=== PATIENT | female | born 1965 | race Caucasian/White ===

== ENCOUNTER 2020-12-12 07:28 | Outpatient (REF) | payer BC, SELFPAY ==
[2020-12-12 11:52] LABS: Hematocrit 40.7 % (37-47); Hemoglobin 13.7 g/dl (12.0-16.0); Mean Corpuscular HGB Conc 33.7 g/dl (31.0-35.0); Mean Corpuscular Hemoglobin 32.2 pg (27.0-33.0); Mean Corpuscular Volume 95.8 fL (80-98); Mean Platelet Volume 10.9 fL (9.4-12.3); Platelet Count 143 X10*3/uL (160-400); Red Blood Count 4.25 X10*6/uL (4.20-5.50); Red Cell Distribution Width 11.8 % (11.0-16.0); White Blood Count 4.1 X10*3/uL (4.8-10.8)
[2020-12-12 12:01] LABS: Alanine Aminotransferase 26 U/L (0-31); Albumin Level 4.2 g/dL (3.5-5.0); Alkaline Phosphatase 109 U/L (39-117); Anion Gap 13 (12-20); Aspartate Amino Transferase 20 U/L (5-31); Bilirubin Direct 0.4 mg/dL (0.0-0.5); Bilirubin Total 1.2 mg/dL (0.0-1.0); Blood Urea Nitrogen 17 mg/dL (9-16); Calcium 9.5 mg/dL (8.4-10.2); Carbon Dioxide 29 mmol/L (22-29); Chloride 105 mmol/L (96-108); Cholesterol 168 mg/dL; Estimated Glomerular Filt Rate > 60; Glucose Random 104 mg/dL (60-115); HDL Cholesterol 61 mg/dL; LDL Cholesterol Calculated 83 mg/dl; Potassium 4.3 mmol/L (3.3-5.1); Sodium 143 mmol/L (135-145); Triglycerides 123 mg/dL
== END 2020-12-12 07:29 | disposition home or self-care (01) ==
LOC: HO.HMGCLDS 07:28
PROVIDERS: PCP Internal Medicine; Visit Provider Internal Medicine
DX: E78.01 Familial hypercholesterolemia (principal)
CPT/HCPCS: 36415; 80048; 80061; 80076; 84443; 85027

== ENCOUNTER 2021-09-30 11:26 | Outpatient (REF) | payer BC, SELFPAY ==
[2021-09-30 14:06] LABS: Appearance Urine CLOUDY; Color Urine YELLOW; Glucose Urine UA NEG (NEG); Leukocyte Esterase Urine 2+ (NEG); Nitrite Urine NEG (NEG); UACC Culture Trigger YES; Urine Blood 3+ (NEG); Urine Ketones NEG (NEG); Urine Protein 2+ MG/DL (NEG-TRACE)
[2021-09-30 14:37] LABS: WBC Urine TNTC /HPF (0-4)
[2021-09-30 14:38] LABS: Bacteria Urine 1+ /LPF; Mucus Urine 1+ /LPF; Squamous Epithelial Cell Urine TRACE /LPF
== END 2021-09-30 11:27 | disposition home or self-care (01) ==
LOC: HO.HMGCLDS 11:26
PROVIDERS: PCP Internal Medicine; Visit Provider Internal Medicine
DX: R30.0 Dysuria (principal)
CPT/HCPCS: 81001; 81003; 87086; 87088; 87186

== ENCOUNTER 2023-12-24 14:09 | Outpatient (AMB) | payer BC, SELFPAY ==
--- NOTE | 2023-12-24 14:15 | A.OFFPC_ITS ---
Vital Signs 12/24/23 14:18 Height 5 ft 5 in Weight 167 lb 2 oz BMI 27.8 BP 122/66 Blood Pressure Location Rt brachial Position Sitting Pulse 69 Pulse Source Pulse Oximeter Pulse Oximetry (%) 97 Oxygen Delivery Method Room Air Intake Visit Reasons: Medications F/U Intake Note: Patient is here to follow up on medication review. Complaint of palpitation for the last one week Food Service Worker Required: No Professor Of Special Education: Not Required per policy Accompanied by: Self / Same As Patient Allergies No Known Allergies [No Known Allergies*] Allergy (Verified 04/27/23 13:19) Tobacco use date assessed: 12/24/23 Dental Screening Dental Screen Date: 12/24/23 Did you have a dental visit in the last 12 months?: Yes Did you have a dental problem in the last 6 months where you did not have access to dental care?: No Was dental information given to patient?: Patient has dentist HPI Medications F/U HPI Details 58-year-old female presents to the offic e to discuss her medical condition. Patient reports heaviness of chest at times with racing heartbeats. Symptoms are partially treated with the propranolol twice a day. She feels anxious and symptoms are more at work. Her sleep patterns are disturbed. Racing thoughts at times. Also feels that something is oozing from her ears. Occasionally it is itchy. [facility] Medical History (Updated 12/25/23 @ 15:08 by Bharathi Gonzalez MD) Eczema of external ear Irritable bowel syndrome Anxiety disorder, unspecified Familial hypercholesterolemia Surgical History Hx of removal of ovary History of hand surgery Family History Father No problems noted. Mother No problems noted. Brother No problems noted. Sister No problems noted. Daughter No problems noted. 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 1. Little interest or pleasure in doing things: not at all 2. Feeling down, depressed, or hopeless: not at all 3. Trouble falling or staying asleep, or sleeping too much: not at all 4. Feeling tired or having little energy: not at all 5. Poor appetite or overeating: not at all 6. Feeling bad about yourself - or that you are a failure or have let yourself or your family down: not at all 7. Trouble concentrating on things, such as reading the newspaper or watching t elevision: not at all 8. Moving or speaking so slowly that other people could have noticed. Or the opposite - being so fidgety or restless that you have been moving around a lot more than usual: not at all 9. Thoughts that you would be better off or of hurting yourself in some way: not at all Total score: 0 Depression Screening Interpretation: Negative Depression Screening Done: Yes Source: Developed by Drs. Amadeo Tovar, Dariela Barr, Jero Berger and colleagues, with an educational sekou from [employer]. Thrive Questionnaire Date Thrive assessed: 12/24/23 I am a: Patient What is your living situation today?: I have a steady place to live Within the past 12 months, did the food you bought not last and you didn't have the money to get more?: Never true Within the past 12 months, did you worry whether your food would run out before you got money to buy more?: Never true Do you have trouble paying for medicines?: No Do you have trouble getting transportation to medical appointments?: No Do you have trouble paying your heating and electricity bill?: No Do you have trouble taking care of your child, family member or friend?: No Do you have trouble with day-to-day activities such as bathing, preparing meals, shopping, managing finances, etc.?: No Are you currently unemployed and looking for a job?: No Are you interested in more education?: No Currently or been in a relationship where the following occur: no concerns reported THRIVE Score: 0 AUDIT C Alcohol Use Questionnaire (AUDIT-C) 1. How often do you have a drink containing alcohol?: 2-4 times a month 2. How many drinks containing alcohol do you have on a typical day when you are drinking?: 1 or 2 Total Score: 2 WILY-7 AMB Questionnaire WILY-7 Date WILY - 7 assessed: 12/24/23 Feeling nervous, anxious, or on edge: 3 = Nearly every day Not being able to stop or control worryin = Nearly every day Worrying too much about different things: 3 = Nearly every day Trouble relaxin = Several days Being so restless that it is hard to sit still: 0 = Not at all Becoming easily annoyed or irritable: 0 = Not at all Feeling afraid as if something awful might happen: 1 = Several days Total WILY-7 score (0-4 normal; 5-9 mild; 10-14 moderate; 15-21 severe): 11 Source: Developed by Drs. Amadeo Tovra, Dariela Barr, Jero Berger and colleagues, with an educational sekou from [employer]. Physical exam (Primary Care) Vital Signs: Last Vital Signs Pulse 69 12/24/23 14:18 BP 122/66 12/24/23 14:18 Pulse Ox 97 12/24/23 14:18 Oxygen Delivery Method Room Air 12/24/23 14:18 BMI result Body Mass Index 27.8 Tobacco/Smoking Status: Tobacco use Status Tobacco use date assessed 12/24/23 12/24/23 14:17 Patient Tobacco Use Status Never used Tobacco 12/24/23 14:38 e-Cigarette/Vaping Use Never Used 12/24/23 14:17 PHQ-9: PHQ-9 Score PHQ-9: Total score 0 12/24/23 14:17 Depression Screening Interpretation: Negative Thrive Assessment: Date of Thrive Assessment Date Thrive assessed 12/24/23 12/24/23 14:17 Currently or been in a relationship where the following occur: no concerns reported Const General: cooperative and healthy appearing Nutritional Appearance: well nourished Orientation/consciousness: patient oriented x3 Limitations: no limitations HENMT Head: Yes normal to inspection Eyes General: appearance normal, both eyes and all related structures Neck Neck: Yes normal visual inspection Chest Chest palpation & inspection: normal palpation of entire chest wall Resp Effort & Inspection: normal respiratory effort Skin Other: Right ear: Tragus: Erythematous area,weepy Neuro General: patient oriented x3 Office Procedures EKG Details: Normal sinus rhythm 76472-[id number], Complete Assessment and Plan Assessment & Plan (1) Anxiety disorder, unspecified: Code(s): F41.9 - Anxiety disorder, unspecified Plan: Citalopram has been started. Patient has agreed to take the medication. Citalopram 10 mg once a day. Follow-up in 4 weeks. (2) Familial hypercholesterolemia: Comment: Atorvastatin has been called in. Repeat lab work will be done in 6 months. Code(s): E78.01 - Familial hypercholesterolemia (3) Eczema of external ear: Code(s): H60.549 - Acute eczematoid otitis externa, unspecified ear Plan: Triamcinolone prescription given. Orders: Orders AMB EKG-In Office 12/24/23 R00.2 - Palpitations Lipid Panel 12/24/23 E78.01 - Familial hypercholesterolemia, F41.9 - Anxiety disorder, unspecified Basic Metabolic Panel 12/24/23 E78.01 - Familial hypercholesterolemia, F41.9 - Anxiety disorder, unspecified Complete Blood Count no Diff 12/24/23 E78.01 - Familial hypercholesterolemia, F41.9 - Anxiety disorder, unspecified Liver Panel 12/24/23 E78.01 - Familial hypercholesterolemia, F41.9 - Anxiety disorder, unspecified Thyroid Stimulating Hormone 12/24/23 E78.01 - Familial hypercholesterolemia, F41.9 - Anxiety disorder, unspecified UA and rflx microscopic 12/24/23 E78.01 - Familial hypercholesterolemia, F41.9 - Anxiety disorder, unspecified Medications: New escitalopram oxalate 10 mg PO DAILY 90 tabs 1RF 90 days Changed From propranolol 10 mg PO BID 60 tabs 1RF To propranolol 10 mg PO TID 60 tabs 1RF Refilled clonazepam administer 30 minutes before bedtime 0.5 mg PO BEDTIME 14 tabs 0RF atorvastatin 10 mg PO BEDTIME 90 tabs 1RF betamethasone dipropionate 0.05% 1 appl topical BID PRN 45 grams 0RF skin irritation Coding Level of Care Code Est Pt Level 4 (82582) Complex EM visit Add On G2211 Diagnoses Anxiety disorder, unspecified F41.9 Familial hypercholesterolemia E78.01 Eczema of external ear H60.549 CPT Codes EKG - CPT: 59215-[id number], Complete ([id number])
[2023-12-24 14:18] VITALS: BP 122/66; PULSE 69; O2SAT 97; BMI 27.8
== END 2023-12-24 15:24 | disposition home or self-care (01) ==
PROVIDERS: PCP Internal Medicine; Visit Provider Internal Medicine
DX: R00.2 Palpitations (principal); E78.01 Familial hypercholesterolemia; F41.9 Anxiety disorder, unspecified; H60.543 Acute eczematoid otitis externa, bilateral
CPT/HCPCS: 93000; 99214

== ENCOUNTER 2024-01-13 07:57 | Outpatient (REF) | payer BC, SELFPAY ==
[2024-01-13 10:18] LABS: Appearance Urine Clear; Color Urine Yellow; Glucose Urine UA Negative (Negative); Leukocyte Esterase Urine Moderate (2+) (Negative); Nitrite Urine Negative (Negative); Specific Gravity - Urine 1.015 (1.005-1.025); UMIC TRIGGER UA YES; Urine Blood Negative (Negative); Urine Ketones Negative (Negative); Urine Protein Negative (Neg-Trace)
[2024-01-13 10:18] LABS: Hematocrit 43.7 % (37.0-47.0); Hemoglobin 14.8 g/dl (12.0-16.0); Mean Corpuscular HGB Conc 33.9 g/dl (31.0-35.0); Mean Corpuscular Hemoglobin 32.2 pg (27.0-33.0); Mean Corpuscular Volume 95.2 fL (80.0-98.0); Mean Platelet Volume 10.7 fL (9.4-12.3); Platelet Count 147 X10*3/uL (160-400); Red Blood Count 4.59 X10*6/uL (4.20-5.50); Red Cell Distribution Width 11.9 % (11.0-16.0); White Blood Count 4.9 X10*3/uL (4.8-10.8)
[2024-01-13 10:22] LABS: Bacteria Urine None Seen (None Seen); Hyaline Casts Urine 0-2 /LPF (0-2); RBC Urine 0-2 /HPF (0-2); Squamous Epithelial Cell Urine 0-2 /HPF (0-2); WBC Urine 0-5 /HPF (0-5)
[2024-01-13 10:40] LABS: Alanine Aminotransferase 23 U/L (0-31); Albumin Level 4.4 g/dL (3.5-5.0); Alkaline Phosphatase 84 U/L (39-117); Anion Gap 13 (12-20); Aspartate Amino Transferase 20 U/L (5-31); Bilirubin Direct 0.4 mg/dL (0.0-0.5); Bilirubin Total 1.2 mg/dL (0.0-1.0); Blood Urea Nitrogen 20 mg/dL (9-16); Carbon Dioxide 27 mmol/L (22-29); Chloride 104 mmol/L (96-108); Cholesterol 191 mg/dL (<200); Estimated Glomerular Filt Rate > 60; Glucose Random 104 mg/dL (60-115); HDL Cholesterol 64 mg/dL (>40); LDL Cholesterol Calculated 93 mg/dL (<100); Potassium 4.3 mmol/L (3.3-5.1); Sodium 140 mmol/L (135-145); Total Protein 7.3 g/dL (6.5-8.0); Triglycerides 174 mg/dL (<150)
[2024-01-13 10:56] LABS: Thyroid Stimulating Hormone 1.58 uIU/mL (0.32-4.0)
== END 2024-01-13 07:58 | disposition home or self-care (01) ==
LOC: HO.HMGCLDS 07:57
PROVIDERS: PCP Internal Medicine; Visit Provider Internal Medicine
DX: F41.9 Anxiety disorder, unspecified (principal); E78.01 Familial hypercholesterolemia
CPT/HCPCS: 36415; 80048; 80061; 80076; 81001; 84443; 85027

== ENCOUNTER 2024-01-27 14:31 | Outpatient (AMB) | payer BC, SELFPAY ==
--- NOTE | 2024-01-27 14:59 | A.OFFPC_ITS ---
Vital Signs 01/27/24 15:01 Height 5 ft 5 in Weight 167 lb BMI 27.8 BP 100/62 Blood Pressure Location Lt brachial Position Sitting Pulse 62 Pulse Source Pulse Oximeter Pulse Oximetry (%) 95 Oxygen Delivery Method Room Air Intake Visit Reasons: 1mof\u Intake Note: Patient is here to follow up on Anxiety and Hypercholesterolemia. 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 She is tolerating the medications very well. The palpitations symptoms that she had in the last office visit has now resolved. Reporting no side effects with the SSRI. [facility] Medical History (Updated 12/25/23 @ 15:08 by Bharathi Gonzalez MD) Eczema of external ear Irritable bowel syndrome Anxiety disorder, unspecified Familial hypercholesterolemia Surgical History Hx of removal of ovary History of hand surgery Family History Father No problems noted. Mother No problems noted. Brother No problems noted. Sister No problems noted. Daughter No problems noted. 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 Cognitive needs: No Hearing needs: No Vision needs: Yes (Glasses/ Contacts) Questionnaire Thrive Questionnaire Date Thrive assessed: 12/24/23 WILY-7 AMB Questionnaire WILY-7 Date WILY - 7 assessed: 01/27/24 Feeling nervous, anxious, or on edge: 0 = Not at all Not being able to stop or control worryin = Not at all Worrying too much about different things: 0 = Not at all Trouble relaxin = Not at all Being so restless that it is hard to sit still: 0 = Not at all Becoming easily annoyed or irritable: 0 = Not at all Feeling afraid as if something awful might happen: 0 = Not at all Total WILY-7 score (0-4 normal; 5-9 mild; 10-14 moderate; 15-21 severe): 0 Source: Developed by Drs. Amadeo Tovar, Dariela Barr, Jero Berger and colleagues, with an educational sekou from [employer]. Physical exam (Primary Care) Vital Signs: Last Vital Signs Pulse 62 01/27/24 15:01 BP 100/62 01/27/24 15:01 Pulse Ox 95 01/27/24 15:01 Oxygen Delivery Method Room Air 01/27/24 15:01 BMI result Body Mass Index 27.8 Tobacco/Smoking Status: Tobacco use Status Tobacco use date assessed 01/27/24 01/27/24 15:05 Patient Tobacco Use Status Never used Tobacco 01/27/24 15:05 e-Cigarette/Vaping Use Never Used 01/27/24 15:05 Thrive Assessment: Date of Thrive Assessment Date Thrive assessed 12/24/23 01/27/24 15:05 Const General: cooperative and healthy appearing Nutritional Appearance: well nourished Orientation/consciousness: patient oriented x3 Limitations: no limitations HENMT Head: Yes normal to inspection Eyes General: appearance normal, both eyes and all related structures Neck Neck: Yes normal visual inspection Chest Chest palpation & inspection: normal palpation of entire chest wall Resp Effort & Inspection: normal respiratory effort Neuro General: patient oriented x3 Assessment and Plan Assessment & Plan (1) Anxiety disorder, unspecified: Code(s): F41.9 - Anxiety disorder, unspecified Plan: Continue citalopram for 6 months. Intermittent use of clonazepam as needed. Propranolol has been stopped. Patient was instructed on the side effects of the medications including gaining weight. Patient will be checking her weights on a daily basis. Coding Level of Care Code Est Pt Level 4 (57985) Complex EM visit Add On G2211 Diagnoses Anxiety disorder, unspecified F41.9
[2024-01-27 15:01] VITALS: BP 100/62; PULSE 62; O2SAT 95; BMI 27.8
== END 2024-01-27 15:44 | disposition home or self-care (01) ==
PROVIDERS: PCP Internal Medicine; Visit Provider Internal Medicine
DX: F41.9 Anxiety disorder, unspecified (principal)
CPT/HCPCS: 99214

== ENCOUNTER 2024-08-16 08:02 | Outpatient (REF) | payer BC, SELFPAY ==
[2024-08-16 10:44] LABS: MANUAL DIFF FLAG NO
[2024-08-16 10:49] LABS: Basophils Percent Auto 0.6 % (0-2); Eosinophils Absolute Auto 0.2 X10*3/uL (0.0-0.4); Eosinophils Percent Auto 3.5 % (0-4); Hematocrit 43.3 % (37.0-47.0); Hemoglobin 14.8 g/dl (12.0-16.0); Imm Gran Abs Auto 0.01 X10*3/uL (0.00-0.03); Imm Gran Pct Auto 0.2 % (0.0-0.4); Lymphocytes Absolute Auto 1.3 X10*3/uL (1.2-4.9); Lymphocytes Percent Auto 26.3 % (20-40); Mean Corpuscular HGB Conc 34.2 g/dl (31.0-35.0); Mean Corpuscular Hemoglobin 32.6 pg (27.0-33.0); Mean Corpuscular Volume 95.4 fL (80.0-98.0); Mean Platelet Volume 10.8 fL (9.4-12.3); Monocytes Absolute Auto 0.4 X10*3/uL (0.1-1.2); Monocytes Percent Auto 7.5 % (2-11); Neutrophils Percent Auto 61.9 % (45-73); Platelet Count 171 X10*3/uL (160-400); Red Blood Count 4.54 X10*6/uL (4.20-5.50); Red Cell Distribution Width 11.7 % (11.0-16.0); White Blood Count 4.8 X10*3/uL (4.8-10.8)
[2024-08-16 10:59] LABS: Estimated Average Glucose 94 mg/dL; Hemoglobin A1C 117.1233 umol/L; Hemoglobin A1c % 4.9 % (<6.0); Total Hemoglobin (HGBA1C) 3879.0642 umol/L
[2024-08-16 11:09] LABS: Alanine Aminotransferase 29 U/L (0-31); Albumin Level 4.5 g/dL (3.5-5.0); Alkaline Phosphatase 92 U/L (39-117); Anion Gap 16 (12-20); Aspartate Amino Transferase 24 U/L (5-31); Bilirubin Direct 0.2 mg/dL (0.0-0.5); Blood Urea Nitrogen 19 mg/dL (9-16); Calcium 9.8 mg/dL (8.4-10.2); Carbon Dioxide 28 mmol/L (22-29); Chloride 103 mmol/L (96-108); Cholesterol 186 mg/dL (<200); Estimated Glomerular Filt Rate > 60; Glucose Fasting 101 mg/dL (60-99); HDL Cholesterol 57 mg/dL (>40); LDL Cholesterol Calculated 88 mg/dL (<100); Magnesium 2.2 mg/dL (1.6-2.6); Potassium 4.8 mmol/L (3.3-5.1); Sodium 142 mmol/L (135-145); Total Protein 8.1 g/dL (6.5-8.0); Triglycerides 206 mg/dL (<150)
[2024-08-16 11:29] LABS: TSH reflex Free T4 1.61 uIU/mL (0.32-4.0); Vitamin D 25-OH Total 50.3 ng/mL (>30)
[2024-08-16 11:35] LABS: Folate 14.5 ng/mL (> or = 4.0); Vitamin B12 556 pg/mL (200-900)
== END 2024-08-16 08:03 | disposition home or self-care (01) ==
LOC: HO.HMGCLDS 08:02
PROVIDERS: PCP Internal Medicine; Visit Provider Physician Assistant Medical
DX: Z00.00 Encounter for general adult medical examination without abnormal findings (principal); Z13.1 Encounter for screening for diabetes mellitus
CPT/HCPCS: 36415; 80053; 80061; 80076; 82248; 82306; 82607; 82746; 83036; 83735; 84443; 85025

== ENCOUNTER 2025-02-15 15:30 | Outpatient (AMB) | payer BC, SELFPAY ==
[2025-02-15 15:28] VITALS: BP 121/57; PULSE 60; RESP 14; TEMP 36.7; O2SAT 97; BMI 27.0
--- NOTE | 2025-02-15 15:28 | A.OFFPC_ITS ---
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 She was prescribed escitalopram 10 mg to manage these symptoms, which she has been taking for approximately one year. The patient reports that her symptoms have improved, and she feels fine now. The patient is interested in discontinuing escitalopram and has been advised on a tapering schedule to minimize withdrawal symptoms. She has been practicing int ermittent fasting as part of her efforts to improve her overall health. The patient also reports a growth on her right ring finger, which has been increasing in size over time. She has not had any prior imaging or injuries to the finger. Social History - The patient is practicing intermittent fasting as part of her health regimen. [facility] Medical History (Updated 02/15/25 @ 15:59 by Alexandra Rice PA-C) Heart palpitations Finger pain, right Eczema of external ear Irritable bowel syndrome Anxiety disorder, unspecified Familial hypercholesterolemia Surgical History History of colonoscopy with polypectomy (08/02/19) Hx of removal of ovary History of hand surgery Family History Father No problems noted. Mother No problems noted. Brother No problems noted. Sister No problems noted. Daughter No problems noted. 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 1. Little interest or pleasure in doing things: not at all 2. Feeling down, depressed, or hopeless: not at all 3. Trouble falling or staying asleep, or sleeping too much: not at all 4. Feeling tired or having little energy: not at all 5. Poor appetite or overeating: not at all 6. Feeling bad about yourself - or that you are a failure or have let yourself or your family down: not at all 7. Trouble concentrating on things, such as reading the newspaper or watching television: not at all 8. Moving or speaking so slowly that other people could have noticed. Or the opposite - being so fidgety or restless that you have been moving around a lot more than usual: not at all 9. Thoughts that you would be better off or of hurting yourself in some way: not at all Total score: 0 Depression Screening Interpretation: Negative Depression Screening Done: Yes Source: Developed by Drs. Amadeo Tovar, Dariela Barr, Jero Berger and colleagues, with an educational sekou from [employer]. Thrive Questionnaire Date Thrive assessed: 08/18/24 I am a: Patient What is your living situation today?: I have a steady place to live Within the past 12 months, did the food you bought not last and you didn't have the money to get more?: Never true Within the past 12 months, did you worry whether your food would run out before you got money to buy more?: Never true Do you have trouble paying for medicines?: No Do you have trouble getting transportation to medical appointments?: No Do you have trouble paying your heating and electricity bill?: No Do you have trouble taking care of your child, family member or friend?: No Do you have trouble with day-to-day activities such as bathing, preparing meals, shopping, managing finances, etc.?: No Are you currently unemployed and looking for a job?: No Are you interested in more education?: No Currently or been in a relationship where the following occur: No concerns reported THRIVE Score: 0 AUDIT C Alcohol Use Questionnaire (AUDIT-C) 1. How often do you have a drink containing alcohol?: 2-4 times a month 2. How many drinks containing alcohol do you have on a typical day when you are drinking?: 1 or 2 3. How often do you have six or more drinks on one occasion?: Never Total Score: 2 Score Reviewed/Action Taken: No WILY-7 AMB Questionnaire WILY-7 Date WILY - 7 assessed: 08/18/24 Feeling nervous, anxious, or on edge: 0 = Not at all Not being able to stop or control worryin = Not at all Worrying too much about different things: 0 = Not at all Trouble relaxin = Not at all Being so restless that it is hard to sit still: 0 = Not at all Becoming easily annoyed or irritable: 0 = Not at all Feeling afraid as if something awful might happen: 0 = Not at all Total WILY-7 score (0-4 normal; 5-9 mild; 10-14 moderate; 15-21 severe): 0 Source: Developed by Drs. Amadeo Tovar, Dariela Barr, Jero Berger and colleagues, with an educational sekou from [employer]. WILY-7 Assessment Billing WILY-7 Assessment Tool: WILY-7 Assessment 40413 Review of Systems Const Details: - Cardiovascular: Reports heart palpitations. Denies chest pain. - Neurological: Denies dizziness or lightheadedness. - Psychiatric: Reports anxiety. Denies mood swings or irritability. All systems reviewed & are unremarkable except as noted in HPI and below Physical exam (Primary Care) Vital Signs: Last Vital Signs Temp 98.0 F 02/15/25 15:28 Pulse 60 02/15/25 15:28 Resp 14 02/15/25 15:28 BP 121/57 L 02/15/25 15:28 Pulse Ox 97 02/15/25 15:28 Oxygen Delivery Method Room Air 02/15/25 15:28 Care Plan Goal for BP management: <140/90 at Goal BMI result Body Mass Index 27.0 BMI Assessment/Plan discussion: High BMI High, discussed plan: lifestyle, weight reduction, dietary, physical activity, alcohol moderation and other Tobacco/Smoking Status: Tobacco use Status Tobacco use date assessed 02/15/25 02/15/25 15:30 Patient Tobacco Use Status Never used Tobacco 02/15/25 15:28 e-Cigarette/Vaping Use Never Used 02/15/25 15:28 PHQ-9: PHQ-9 Score PHQ-9: Total score 0 02/15/25 15:37 Depression Screening Interpretation: Negative Thrive Assessment: Date of Thrive Assessment Date Thrive assessed 08/18/24 02/15/25 15:28 Currently or been in a relationship where the following occur: No concerns reported Const Other: Appearance: Alert. Oriented X3. No acute distress. Head: Normal external exam. Normocephalic. Atraumatic. Eyes: Pupils are equal, round, and reactive to light. Extraocular movements intact. Conjunctiva and sclera normal. Eyelids normal. Throat: Pharynx normal. Uvula midline. Moist mucous membranes. Neck: Normal inspection. Neck supple. Full range of motion. Cardiovascular: Normal heart rate and rhythm. Respiratory: No respiratory distress. Painless inspiration. Back: Full range of motion noted. Skin: Skin warm and dry. Normal skin color. Normal skin turgor. No rashes/lesions/lacerations noted. Extremities: Extremities exhibit normal range of motion. Growth noted on the right hand, ring finger, resembling an arthritis lump. Coding Level of Care Code Est Pt Level 4 (04283) Complex EM visit Add On G2211 Diagnoses Anxiety disorder, unspecified F41.9 Heart palpitations R00.2 Finger pain, right M79.644 Additional Codes WILY-7 Assessment Billing - WILY-7 Assessment Tool: WILY-7 Assessment 89852 ([id number]) Assessment & Plan Assessment & Plan (1) Anxiety disorder, unspecified: Code(s): F41.9 - Anxiety disorder, unspecified Category: Medical Plan: The patient has been on escitalopram 10 mg for anxiety management, which she wishes to discontinue. A tapering schedule has been provided to minimize withdrawal symptoms, starting with 5 mg daily for two weeks, then 5 mg every other day for two weeks, and finally discontinuing if no withdrawal symptoms occur. (2) Heart palpitations: Code(s): R00.2 - Palpitations Category: Medical Plan: The patient experienced heart palpitations during a stressful work transition, which have since resolved. (3) Finger pain, right: Comment: lump to dip of right ring finger Code(s): M79.644 - Pain in right finger(s) Category: Medical Plan: The patient reports a growth on her right ring finger, which has been increasing in size. A referral to orthopedics and an x-ray have been ordered to assess the growth further. Plan Plan Patient was informed and verbally consented to the use of an ambient scribe for clinic note documentation during this visit. 1. Anxiety The patient has been on escitalopram 10 mg for anxiety management, which she wishes to discontinue. A tapering schedule has been provided to minimize withdrawal symptoms, starting with 5 mg daily for two weeks, then 5 mg every other day for two weeks, and finally discontinuing if no withdrawal symptoms occur. 2. Heart Palpitations The patient experienced heart palpitations during a stressful work transition, which have since resolved. 3. Growth On Right Ring Finger The patient reports a growth on her right ring finger, which has been increasing in size. A referral to orthopedics and an x-ray have been ordered to assess the growth further. I discussed with the patient the tapering schedule for escitalopram to minimize withdrawal symptoms, including potential symptoms such as dizziness and irritability. We also discussed the referral to orthopedics and the need for an x-ray to evaluate the growth on her finger. Orders: Orders XR finger RT min 2V Today M79.644 - Pain in right finger(s) Referrals Orthopedics Referral M79.644 - Pain in right finger(s) Patient Instructions: - Follow the tapering schedule for escitalopram as discussed. - Monitor for any withdrawal symptoms and report them if they occur. - Attend the orthopedic appointment and get an x-ray for the finger growth.
== END 2025-02-15 15:51 | disposition home or self-care (01) ==
LOC: HO.HMCSH 15:30
PROVIDERS: PCP Internal Medicine; Visit Provider Physician Assistant Medical
DX: F41.9 Anxiety disorder, unspecified (principal); R00.2 Palpitations; M79.644 Pain in right finger(s)

== ENCOUNTER → 2025-02-15 15:30 | Outpatient (BNVA) | payer BC, SELFPAY | PROVIDERS: PCP Internal Medicine; Visit Provider Physician Assistant Medical | DX: F41.9 Anxiety disorder, unspecified (principal); R00.2 Palpitations; M79.644 Pain in right finger(s); Z79.899 Other long term (current) drug therapy; Z13.31 Encounter for screening for depression | CPT/HCPCS: 96127 ==

== ENCOUNTER 2025-02-21 11:49 | Outpatient (REF) | payer BC, SELFPAY ==
--- NOTE | ~2025-02-21 | XR_ITS ---
EXAMINATION: XR FINGERS RIGHT HISTORY: M79.644 - Pain in right finger(s) COMPARISON: There are no prior studies available for comparison. FINDINGS: Three views of the right ring finger are submitted. Osseous mineralization is normal. There is no fracture or dislocation. The joint spaces are preserved. There are no osseous erosions. There is a 7 mm soft tissue calcification at the radial aspect of the DIP joint. XR/XR finger RT min 2V IMPRESSION: 7 mm soft tissue calcification of the radial aspect of the DIP joint. Otherwise unremarkable examination of the right 4th finger. Electronically signed by: Aamdeo George MD 02/21/2025 12:29 PM EDT
== END 2025-02-21 11:50 | disposition home or self-care (01) ==
LOC: HO.HMGCX 11:49
PROVIDERS: PCP Internal Medicine; Visit Provider Physician Assistant Medical
DX: M79.644 Pain in right finger(s) (principal)
CPT/HCPCS: 73140

== ENCOUNTER → 2025-02-21 12:00 | Outpatient (BNV) | payer BC, SELFPAY | PROVIDERS: PCP Internal Medicine; Visit Provider Radiology Diagnostic Radiology | DX: M79.644 Pain in right finger(s) (principal) | CPT/HCPCS: 73140 ==

== ENCOUNTER 2025-03-15 08:55 | Outpatient (AMB) | payer BC, SELFPAY ==
[2025-03-15 09:08] VITALS: BMI 27.0
--- NOTE | 2025-03-15 09:08 | MHC.OFFVIS ---
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 States a growth on her right ring finger DIP aspect of finger, which has been increasing in size over time. Reports she doesn't have pain but has tenderness, causes discomfort and limited her ROM. She is not able to bend her finger as much. She noticed this growth about 1 yr ago and has worsening in the last 6 months. Denies numbness, tingling or locking of any finger. States she would like to discuss aspiration vs surgical intervention. Allergies No Known Allergies (No Known Allergies*) Allergy (Verified 03/15/25 09:16) HPI HPI [employer]- Pain in right finger(s): Details: Aga is a 60 year old right hand dominant woman who presents for a right ring finger mass. She complains of a mass on the DIP joint of her right ring finger. She says this has been present for ~1 year and has been increasing in size. She says this is tender and limits her ROM. She denies any prior treatment options. She denies any numbness, tingling, locking, or catching. She works at [employer] in [facility] Medical History (Updated 03/15/25 @ 09:29 by Senthil Babin) Heart palpitations Finger pain, right Eczema of external ear Irritable bowel syndrome Anxiety disorder, unspecified Familial hypercholesterolemia Surgical History History of colonoscopy with polypectomy (08/02/19) Hx of removal of ovary History of hand surgery Family History Father No problems noted. Mother No problems noted. Brother No problems noted. Sister No problems noted. Daughter No problems noted. 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 Current occupational exposures/hazards: No Cognitive needs: No Hearing needs: No Vision needs: Yes (Glasses/ Contacts) Review of Systems Const All systems reviewed & are unremarkable except as noted in HPI and below Physical Exam Vital Signs: BMI result Body Mass Index 27.0 Const General: cooperative, healthy appearing and no acute distress Orientation/consciousness: patient oriented x3 HEENT Head: Yes normocephalic and Yes atraumatic Eyes EOM: EOMs intact bilaterally Resp Effort & Inspection: normal respiratory effort and able to speak in complete sentences Cardio Jugular venous distension: no JVD Skin General skin exam: turgor normal Rashes: no rashes Neuro General: patient oriented x3 Extrem Other: Evaluation of Right Upper Extremity: The patient is alert, oriented, and in no acute distress Neuro: Median, Ulnar, Radial nerves motor and sensory intact and sensation is normal to the tips of all digits Vascular: Cap refill brisk ROM: She can make a fist and extend all her digits No locking or catching Skin: No lacerations or abrasions. General: No Ecchymosis. No Erythema or evidence of infection. There is a mass on the radial aspect of the ring finger DIP joint, measuring ~6.5mm long & ~4mm wide It is mildly tender. No overlying skin changes. Radiographs: 3 views of the right hand from 02/21/25 were reviewed by me today in clinic. They show no fractures or dislocations. There is a calcified mass on the radial aspect of the ring finger DIP joint, measuring ~6.5mm long & ~4mm wide Psych Appearance: grossly normal Affect: normal affect Attitude: cooperative Assessment & Plan Assessment & Plan (1) Mass of finger of right hand: Comment: Code(s): R22.31 - Localized swelling, mass and lump, right upper limb Category: Medical (2) Raynaud disease: Code(s): I73.00 - Raynaud's syndrome without gangrene Category: Medical Plan Assessment & Plan: 1. Right ring finger mass, calcified seen on radiographs Radial aspect of the ring finger DIP joint, measuring ~6.5mm long & ~4mm wide I educated her about this condition I discussed operative and non-operative treatment options The patient would like to proceed with surgery The risks and benefits of operative treatment were discussed with the patient and the patient wishes to proceed with surgery. These risks include, but are not limited to risk of damage to blood vessels, nerves, tendons, infection, recurrence, incomplete relief of preoperative symptoms, persistent pain, possible need for further surgery and the risks associated with regional blocks and anesthesia. The plan is to take the patient to the operating room sometime in the next few weeks for the following procedures: 1. Right ring finger DIP joint excision of mass, under local All of the preoperative paperwork including the consent was reviewed today. All the patient's questions were answered. The patient understands that they will be contacted by our clay processing labourer soon to schedule this procedure She denies Diabetes, blood thinners, asthma, lung, kidney issues Patient reports Raynaud's disease She has a Hx of heart palpitations & anxiety disorder, which was managed with Escitalopram. Per her last PCP note from 02/15/25 she says these have resolved and she is weaning off of her medication. She denies being seen by a [employer] Maker. Scribed for Betsy Lira MD by Senthil Babin director biomedical engineering, on 03/15/25 at 9:25 AM, EST. Coding Level of Care Code New Pt Level 4 (22146) Diagnoses Mass of finger of right hand R22.31 Raynaud disease I73.00
== END 2025-03-15 09:46 | disposition home or self-care (01) ==
LOC: HO.HOS 08:56
PROVIDERS: PCP Internal Medicine; Visit Provider Orthopaedic Surgery
DX: R22.31 Localized swelling, mass and lump, right upper limb (principal); I73.00 Raynaud's syndrome without gangrene
CPT/HCPCS: 99204

== ENCOUNTER 2025-05-15 07:28 | Day surgery (SDC) | payer BC, SELFPAY ==
[2025-05-15 07:38] VITALS: BMI 26.6
--- NOTE | 2025-05-15 08:20 | MHC.SHP ---
Pre-Procedural Eval Section A - 24 Hr Update-Section A only Date of Service: 05/15/25 The patient is an INPATIENT: No Changes since office visit: No Cold of Flu in the past 2 weeks, No New Medical Problems, No Changes in Medication and No Patient answered all questions The patient has been examined within 24 hours of the surgical procedure. The History & Physical has been completed within 30 days and I have reviewed it.: Yes Section B - Complete if H&P > 30 days Chief Complaint: Localized swelling, mass and lump, right upper gutierrez Allergies: Allergies Allergy/AdvReac Type Severity Reaction Status Date / Time No Known Allergies (No Known Allergy Verified 05/15/25 07:49 Allergies*) Plan I have reviewed the history and physical and performed a pertinent physical examination on my patient. No changes have occurred unless specified. Time Spent With Patient Time: Total time managing care of this patient today ____ minutes.
--- NOTE | 2025-05-15 08:48 | W.PM.OPN ---
Operative Note Operative Note Date of Service: 05/15/25 Narrative: Operative Note Preop diagnosis: 1. Right ring finger bony/calcified mass at D IP joint Postop diagnosis: same Procedure: 1. Right ring finger bony mass excisional biopsy Surgeon: Betsy Lira MD Blood Collector: None Anesthesia: digital block using 1% lidocaine with epinephrine Findings: At least part of the mass was cystic and filled with white she has the material consistent with either a gouty tophus or an epidermal inclusion cyst. EBL: Less than 5 mL Tourniquet time: None Specimens: Right ring finger mass Complications: None Disposition: Brought to recovery room in stable condition Plan: Follow-up for 7-10 days for wound check and suture removal and to check pathology Indications: The patient is 60 years old, with a bony/calcified mass on the radial aspect of her right ring finger D IP joint . The risks and benefits of operative treatment including but not limited to risk of damage to blood vessels, nerves, tendons, infection, persistent pain, persistent symptoms, recurrence or possible need for additional surgery were discussed with the patient and the patient wishes to proceed with surgery. Procedure: Once consent was obtained a digital block was performed in the preop area using a combination of 1% lidocaine with epinephrine. The patient was then brought back to the operating suite and placed on the operative table in supine position. The right upper extremity was prepped and draped in a standard surgical fashion. Once assured that we had a good block, I made a midline incision centered over the mass on the radial aspect of her right ring finger D IP joint. The incision was made through the skin the subcutaneous tissues using a 15. Blade. I then carefully dissected down to the bony mass on the radial aspect of the right ring finger. The mass was white and oval shaped measuring perhaps 6-7 mm in length by perhaps 5-6 mm in diameter. A carefully dissected about the mass as it was adjacent to the radial aspect of the D IP joint. At 1 point it did rupture and there was some white cheesy material that came out of it. The mass was dissected free from the D IP joint and placed on the back table to be sent for histopathology. A rongeur was also used to remove any additional parts of this mass as it was adjacent to the D IP joint. No further masses were appreciated. Once satisfied with right ring finger mass excision the wound was copiously irrigated with normal saline and hemostasis was obtained with a brief period of local pressure. The skin edges were reapproximated with some 5.0 nylon suture material and a sterile dressing was applied. The patient appears to have tolerated the procedure well and with no complications. This patient does have Raynaud's disease. All digits , including the ring finger were well vascularized at the conclusion of the case.
[2025-05-15 10:19] VITALS: BP 150/71; PULSE 50; RESP 16; O2SAT 96
== END 2025-05-15 10:32 | disposition home or self-care (01) ==
PROVIDERS: PCP Internal Medicine; Visit Provider Orthopaedic Surgery
PROC: (CPT 26210; principal; 2025-05-15 08:50)
DX: R22.31 Localized swelling, mass and lump, right upper limb (principal); M25.741 Osteophyte, right hand; M25.541 Pain in joints of right hand; M72.8 Other fibroblastic disorders; M79.89 Other specified soft tissue disorders; E78.019 Familial hypercholesterolemia, unspecified; R00.2 Palpitations; I73.00 Raynaud's syndrome without gangrene; F41.9 Anxiety disorder, unspecified; Z98.890 Other specified postprocedural states
CPT/HCPCS: 26210; 88304; J0165; J2003

== ENCOUNTER → 2025-05-15 07:28 | Outpatient (BNV) | payer BC, SELFPAY | PROVIDERS: PCP Internal Medicine; Visit Provider Orthopaedic Surgery | DX: L72.0 Epidermal cyst (principal); R22.31 Localized swelling, mass and lump, right upper limb | CPT/HCPCS: 26160 ==

== ENCOUNTER 2025-05-30 09:37 | Outpatient (AMB) | payer BC, SELFPAY ==
[2025-05-30 09:46] VITALS: BMI 26.6
--- NOTE | 2025-05-30 09:46 | A.OFFVIS_ITS ---
Vital Signs 05/30/25 09:46 Height 5 ft 5 in Weight 160 lb BMI 26.6 Intake Visit Reasons: PO RT RF mass exc 05/15/25 AR Intake Note: Aga is a 60 year old right hand dominant female who presents today Post- operatively status post Right Ring Finger Bony Mass Excision performed by Dr. Lira on 05/15/25. Patient reports she is doing well. She has some tenderness around the incision. She denies numbness, tingling, finger locking. Sutures removed in office and steri srips applied. Allergies No Known Allergies (No Known Allergies*) Allergy (Verified 05/30/25 09:53) HPI HPI PO RT RF mass exc 05/15/25 AR: Details: Aga is a 60 year old right hand dominant female who presents today Post- operatively status post Right Ring Finger Bony Mass Excision performed by Dr. Lira on 05/15/25. Patient reports she is doing well. She has some tenderness around the incision. She denies numbness, tingling, finger locking. Sutures removed in office and steri srips applied. [facility] Medical History (Updated 03/15/25 @ 09:29 by Senthil Babin) Heart palpitations Finger pain, right Eczema of external ear Irritable bowel syndrome Anxiety disorder, unspecified Familial hypercholesterolemia Surgical History History of colonoscopy with polypectomy (08/02/19) Hx of removal of ovary History of hand surgery Family History Father No problems noted. Mother No problems noted. Brother No problems noted. Sister No problems noted. Daughter No problems noted. 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/ [employer] Current occupational exposures/hazards: No Cognitive needs: No Hearing needs: No Vision needs: Yes (Glasses/ Contacts) Review of Systems Const All systems reviewed & are unremarkable except as noted in HPI and below Physical Exam Vital Signs: BMI result Body Mass Index 26.6 Const General: cooperative, healthy appearing and no acute distress Orientation/consciousness: patient oriented x3 HEENT Head: Yes normocephalic and Yes atraumatic Eyes EOM: EOMs intact bilaterally Resp Effort & Inspection: normal respiratory effort and able to speak in complete sentences Cardio Jugular venous distension: no JVD Skin General skin exam: turgor normal Rashes: no rashes Neuro General: patient oriented x3 Extrem Other: Evaluation of Right Upper Extremity: The patient is alert, oriented, and in no acute distress Neuro: Median, Ulnar, Radial nerves motor and sensory intact and sensation is normal to the tips of all digits Vascular: Cap refill brisk ROM: She can make a fist and extend all her digits No locking or catching Skin: No lacerations or abrasions. General: No Ecchymosis. No Erythema or evidence of infection. There is an incision in the previous area of the mass on the radial aspect of the ring finger DIP joint It is very minimally tender. No overlying skin changes. Psych Appearance: grossly normal Affect: normal affect Attitude: cooperative Results Reviewed Results Reviewed: Diagnosis Soft tissue, right ring finger, excision: Dense fibrous tissue with pseudocyst formation, dystrophic calcifications and chronic inflammation; no malignancy identified Assessment & Plan Assessment & Plan (1) Mass of finger of right hand: Comment: RF Code(s): R22.31 - Localized swelling, mass and lump, right upper limb Category: Medical Plan 1. Status post right ring finger mass excision DOS 05/15/2025 Patient appears to be recovering well postoperatively Patient is educated about the typical recovery course No under water times one-week, 2 lb weight limit x2 weeks Patient appears to be recovering very well, and requires no further acute follow-up with us postoperatively Patient is educated and worrisome signs and symptoms, and should call us if they experience any of these, including but not limited to redness, swelling, increased pain, and discharge Patient understands this and is amenable to this plan Follow-up as needed Coding Level of Care Code Global (47790) Diagnoses Mass of finger of right hand R22.31
== END 2025-05-30 09:55 | disposition home or self-care (01) ==
LOC: HO.HOS 09:37
PROVIDERS: PCP Internal Medicine
DX: R22.31 Localized swelling, mass and lump, right upper limb (principal)
CPT/HCPCS: 99024